=== PATIENT | female | born 1990 | race Caucasian/White ===

== ENCOUNTER 2018-03-27 19:27 | Emergency (ER) | payer MEDICAID, OTHER ==
[~2018-03-27] VITALS: Ht 157.5 cm; Wt 135.8 kg
[2018-03-27 20:02] VITALS: BP 119/76
[2018-03-27] MEDS ORDERED: KETOROLAC 30 MG/ML VIAL IM ONE (20:40)
[2018-03-27] MEDS ORDERED: DEXAMETHASONE 10 MG/ML VIAL PO ONE (20:40)
[2018-03-27 21:49] VITALS: BP 118/75
== END 2018-03-27 21:49 | disposition home or self-care (01) ==
LOC: MED 19:27
DX: J02.9 Acute pharyngitis, unspecified (principal)
CPT/HCPCS: 36415; 87081; 87804; 96372; 99283; J1100; J1885

== ENCOUNTER 2018-09-30 20:04 | Emergency (ER) | payer OTHER ==
[~2018-09-30] VITALS: Ht 157.5 cm; Wt 136.5 kg
[2018-09-30 20:10] VITALS: BP 130/68
--- NOTE | 2018-09-30 20:10 | NUR ---
PATIENT AMBULATED TO ER BED 9.
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
[2018-09-30 21:35] VITALS: BP 130/68
--- NOTE | 2018-09-30 21:35 | NUR ---
Patient discharged BY DR EAST with v/s stable. Written and verbal after care instructions given and explained. Patient alert, oriented and verbalized understanding of instructions. Ambulatory with steady gait. All questions addressed prior to discharge. ID band removed. Patient advised to follow up with PMD. Rx of NAPROSYN given. Patient educated on indication of medication including possible reaction and side effects. Opportunity to ask questions provided and answered.
== END 2018-09-30 21:35 | disposition home or self-care (01) ==
LOC: MED 20:04
DX: S93.601A Unspecified sprain of right foot, initial encounter (principal); X58.XXXA Exposure to other specified factors, initial encounter; Y93.01 Activity, walking, marching and hiking; Y92.89 Other specified places as the place of occurrence of the external cause; Y99.8 Other external cause status
CPT/HCPCS: 73630; 99283; Q0092

== ENCOUNTER 2019-08-23 19:32 | Emergency (ER) | payer OTHER, SELFPAY ==
[~2019-08-23] VITALS: Ht 157.5 cm; Wt 136.1 kg
[2019-08-23 19:42] VITALS: BP 129/81
--- NOTE | 2019-08-23 19:45 | NUR ---
LOGAND WANG EXAMINING PT IN TENT.
--- NOTE | 2019-08-23 19:46 | NUR ---
PT AMBULATED TO BED 10 WITH STEADY GAIT
--- NOTE | 2019-08-23 19:48 | NUR ---
INFORMED AND STATED TO LEAVE PT IN TENT, SO PT IN TENT, DR BARBER SEEING PT IN TENT
--- NOTE | 2019-08-23 19:53 | NUR ---
29F PT PRESENTS TO ED WITH C/O C/O NAUSEA X 1 DAY, SORE THROAT X 5 DAYS; DRY NON PRODUCTIVE COUGH; AROUND HER COUSIN WHO TESTED POSITIVE FOR COVID; PT HAS NOT BEEN TESTED FOR COVID. PMH: PT DENIES NKA
[2019-08-23 19:54] VITALS: BP 129/81
--- NOTE | 2019-08-23 20:00 | NUR ---
COVID SWAB COLLECTED AND SENT TO LAB.
--- NOTE | 2019-08-23 20:07 | NUR ---
Patient discharged with v/s stable. Written and verbal after care instructions given and explained. Patient alert, oriented and verbalized understanding of instructions. Ambulatory with steady gait. All questions addressed prior to discharge. ID band removed. Patient advised to follow up with PMD. Rx of ZOFRAN AND NAPROSYN given. Patient educated on indication of medication including possible reaction and side effects. Opportunity to ask questions provided and answered.
== END 2019-08-23 20:07 | disposition home or self-care (01) ==
LOC: EEVIPCON 19:32 → MED 19:32
DX: J02.8 Acute pharyngitis due to other specified organisms (principal); Z20.828 Contact with and (suspected) exposure to other viral communicable diseases
CPT/HCPCS: 99283; U0003

== ENCOUNTER 2019-10-01 18:42 | Emergency (ER) | payer OTHER, SELFPAY ==
[~2019-10-01] VITALS: Ht 157.5 cm; Wt 136.1 kg
[2019-10-01 18:49] VITALS: BP 143/78
--- NOTE | 2019-10-01 18:50 | NUR ---
PT PLACED IN TENT FOR COVID PRECAUTIONS
--- NOTE | 2019-10-01 18:52 | NUR ---
29 Y/O FEMALE FROM HOME C/O BODY ACHES, CHILLS, AND COUGH SINCE YESTERDAY. PT STATES YELLOW/GREEN SPUTUM WITH COUGH. RR EVEN AND UNLABORED, DOES NOT APPEAR IN DISTRESS. STATES IS COVID +. AWAKE AND ALERT. VSS MEDHX: DENIES
--- NOTE | 2019-10-01 20:43 | NUR ---
Dr. Hawk examining patient.
--- NOTE | 2019-10-01 21:23 | NUR ---
COVID SWAB COLLECTED.
--- NOTE | 2019-10-01 21:23 | NUR ---
Patient discharged with v/s stable. Written and verbal after care instructions given and explained. Patient verbalized understanding. Ambulatory with steady gait. All questions addressed prior to discharge. Advised to follow up with PMD.
--- NOTE | 2019-10-03 14:15 | NUR ---
RECEIVED + COVID RESULT FROM LAB, COPY WILL GO TO [facility]
== END 2019-10-01 21:23 | disposition home or self-care (01) ==
LOC: MED 18:42
DX: R50.9 Fever, unspecified (principal); Z20.828 Contact with and (suspected) exposure to other viral communicable diseases
CPT/HCPCS: 99283; U0003

== ENCOUNTER 2019-12-13 20:54 | Emergency (ER) | payer OTHER, SELFPAY ==
[~2019-12-13] VITALS: Ht 157.5 cm; Wt 122.0 kg
[2019-12-13 21:01] VITALS: BP 140/79
--- NOTE | 2019-12-13 21:05 | NUR ---
To ED bed 04
[2019-12-13 21:13] VITALS: BP 140/79
--- NOTE | 2019-12-13 21:13 | NUR ---
29 year old female coming in for c/o right knee pain. states had a fall at home x 1 hour ago, slipped on slippery cement. RLE CMS intact. pain is centralized to patellar region only. reports 10/10 pain. reports taken ibuprofen x 20 mins with minimal pain relief. awaiting MSE. no other s/sx reported or observed. pmhx: denies nka
--- NOTE | 2019-12-13 21:18 | NUR ---
xray at bedside.
[2019-12-13] MEDS ORDERED: ACETAMINOPHEN EXTRA STRENGTH 500 MG TAB PO ONE (21:30)
== END 2019-12-13 22:12 | disposition home or self-care (01) ==
LOC: MED 20:54
DX: S80.01XA Contusion of right knee, initial encounter (principal); M54.5 Low back pain; W01.0XXA Fall on same level from slipping, tripping and stumbling without subsequent striking against object, initial encounter; Y93.89 Activity, other specified; Y92.89 Other specified places as the place of occurrence of the external cause; Y99.8 Other external cause status
CPT/HCPCS: 73562; 99283; Q0092

== ENCOUNTER 2020-10-29 12:56 | Emergency (ER) | payer OTHER ==
[~2020-10-29] VITALS: Ht 157.5 cm; Wt 138.8 kg
[2020-10-29 13:04] VITALS: BP 129/84
--- NOTE | 2020-10-29 13:05 | NUR ---
PT TAKEN TO BED 8.
[2020-10-29] MEDS ORDERED: KETOROLAC 60 MG/2 ML VIAL IM ONE (13:20)
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
[2020-10-29] MEDS ORDERED: LIDO1ADH47 TP (13:37)
[2020-10-29] MEDS ORDERED: METH-1681 PO (13:37)
[2020-10-29] MEDS ORDERED: NAPR-54 PO (13:37)
[2020-10-29 14:10] VITALS: BP 129/84
--- NOTE | 2020-10-29 14:10 | NUR ---
Patient discharged with v/s stable. Written and verbal after care instructions given and explained. Patient alert, oriented and verbalized understanding of instructions. Ambulatory with steady gait. All questions addressed prior to discharge. ID band removed. Patient advised to follow up with PMD. Rx of Naproxen, Lidocaine and Robaxin given. Patient educated on indication of medication including possible reaction and side effects. Opportunity to ask questions provided and answered.
== END 2020-10-29 14:10 | disposition home or self-care (01) ==
LOC: MED 12:56
DX: S13.4XXA Sprain of ligaments of cervical spine, initial encounter (principal); M54.2 Cervicalgia; M54.5 Low back pain; Z79.899 Other long term (current) drug therapy; V89.2XXA Person injured in unspecified motor-vehicle accident, traffic, initial encounter; Y93.89 Activity, other specified; Y92.89 Other specified places as the place of occurrence of the external cause; Y99.8 Other external cause status
CPT/HCPCS: 96372; 99283; J1885